=== PATIENT | male | born 2000 | race Hispanic/Latino ===

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

== ENCOUNTER 2021-03-02 09:58 | Emergency (ER) | payer SELFPAY ==
[2021-03-02] MEDS ORDERED: ONDANSETRON 4 MG (ODT) TAB ONE (10:54)
[2021-03-02] MEDS ORDERED: NA CHLORIDE 0.9% 1,000 ML ONE (13:26)
[2021-03-02] MEDS ORDERED: ONDANSETRON 4 MG/2 ML VIAL ONE ×2 (13:26→15:11)
[2021-03-02 13:29] LABS: Absolute Lymphocytes (CBC) 0.9 K/uL (0.7-4.9); Basophils % 0.2 % (0-1.3); Hematocrit 54.4 % (39.6-49.0); Lymphocytes % 5.5 % (15.3-44.8); MPV 8.8 fL (7.6-11.3)
[2021-03-02 14:47] LABS: Blood Morphology Comment NOT SEEN (NOT SEEN); Platelet Estimate ADEQ; White Blood Cell Scan OK (OK)
--- NOTE | 2021-03-02 19:19 | RAD REPORT ---
EXAM DESCRIPTION: CT - Abdomen Pelvis W Contrast - 03/02/2021 5:07 pm CLINICAL HISTORY: Abdominal pain. COMPARISON: None. TECHNIQUE: Computed axial tomography of the abdomen and pelvis was obtained. 100 cc Isovue-300 is ad ministered intravenously. Oral contrast was given. All CT scans are performed using dose optimization technique as appropriate and may include automated exposure control or mA/KV adjustment according to patient size. FINDINGS: Mild fatty liver Spleen, pancreas, adrenals and kidneys appear unremarkable. The appendix is normal caliber. There is no evidence of diverticulitis IMPRESSION: No acute abnormality is displayed
--- NOTE | 2021-03-02 20:45 | EDPHYS ---
Physician Documentation [facility] Name: Marco Antonio Tolliver Age: 20 yrs Sex: Male : 2000 Arrival Date: 03/02/2021 Time: 09:59 Bed Treatment Private MD: RADAMES Physician Junior Newman HPI: 03/02 14:47 This 20 yrs old Male presents to ER via Ambulatory with complaints of jmm Vomiting, Dizziness. 14:47 The patient presents to the emergency department with nausea, vomiting, diarrhea, jmm abdominal pain. Onset: The symptoms/episode began/occurred acutely, today. Possible causes: unknown. The symptoms are aggravated by nothing. The symptoms are alleviated by nothing. Associated signs and symptoms: Pertinent negatives: fever. Historical: - Allergies: 10:33 No Known Allergies; hb - Home Meds: 10:33 None [Active]; hb - PMHx: 10:33 None; hb - PSHx: 10:33 None; hb - Immunization history:: Adult Immunizations up to date. - Social history:: Smoking status: Patient denies any tobacco usage or history of. ROS: 14:47 Constitutional: Negative for fever, chills, and weight loss, Cardiovascular: Negative jmm for chest pain, palpitations, and edema, Respiratory: Negative for shortness of breath, cough, wheezing, and pleuritic chest pain. 14:47 Abdomen/GI: Positive for abdominal pain, vomiting, diarrhea. 14:47 All other systems are negative. Exam: 14:47 Constitutional: This is a well developed, well nourished patient who is awake, alert, jmm and in no acute distress. Head/Face: atraumatic. Eyes: EOMI, no conjunctival erythema appreciated ENT: Moist Mucus Membranes Neck: Trachea midline, Supple Chest/axilla: Normal chest wall appearance and motion. Cardiovascular: Regular rate and rhythm. No edema appreciated Respiratory: Normal respirations, no respiratory distress appreciated 14:47 Skin: General appearance color normal MS/ Extremity: Moves all extremities, no obvious deformities appreciated, no edema noted to the lower extremities Neuro: Awake and alert, normal gait Psych: Behavior is normal, Mood is normal, Patient is cooperative and pleasant 14:47 Abdomen/GI: Inspection: abdomen appears normal, Bowel sounds: normal, Palpation: soft, mild abdominal tenderness, in the right lower quadrant. Vital Signs: 10:32 BP 150 / 88; Pulse 86; Resp 16; Temp 97.8; Pulse Ox 100% on R/A; Pain 5/10; hb 14:00 BP 129 / 75; Pulse 89; Resp 18; Pulse Ox 100% on R/A; tr6 MDM: 13:01 Patient medically screened. [facility] 20:42 Data reviewed: vital signs, nurses notes. Data interpreted: Pulse oximetry: on room air kb is 100 %. Interpretation: normal. Counseling: I had a detailed discussion with the patient and/or guardian regarding: the historical points, exam findings, and any diagnostic results supporting the discharge/admit diagnosis, lab results, radiology results, the need for outpatient follow up, a family practitioner, to return to the emergency department if symptoms worsen or persist or if there are any questions or concerns that arise at home. ED course: Patient tolerating p.o. intake. Patient denies pain at this time. Will discharge home for patient to follow-up outpatient. Patient will return for worsening symptoms or inability to tolerate p.o. intake. Patient in agreement with plan of care. 03/02 13:01 Order name: Basic Metabolic Panel [facility] 03/02 13:01 Order name: CBC with Diff; Complete Time: 14:52 [facility] 03/02 13:01 Order name: Hepatic Function [facility] 03/02 13:01 Order name: Lipase [facility] 03/02 13:03 Order name: COVID-19 : Document "Date of Symptom Onset" if Symptomatic. [facility] 03/02 13:35 Order name: CBC Smear Scan; Complete Time: 14:52 [facility] 03/02 14:42 Order name: CT Abd/Pelvis - IV Contrast Only; Complete Time: 19:24 [facility] 03/02 14:58 Order name: SARS-COV-2 RT PCR; Complete Time: 15:08 [facility] 03/02 13:01 Order name: IV Saline Lock; Complete Time: 13:24 [facility] 03/02 13:01 Order name: Labs collected and sent; Complete Time: 13:24 [facility] Administered Medications: 10:35 CANCELLED (dupp): Zofran (Ondansetron) 4 mg IVP once; over 2 minutes hb 10:36 Drug: Zofran (Ondansetron) 4 mg Route: PO; hb 21:13 Follow up: Response: No adverse reaction bs2 13:24 Drug: NS 0.9% 1000 ml Route: IV; Rate: 1 bolus; Site: right antecubital; tr6 14:34 Follow up: Response: No adverse reaction; IV Status: Completed infusion; IV Intake: tr6 1000ml 13:24 Drug: Zofran (Ondansetron) 4 mg Route: IVP; Site: right antecubital; tr6 14:34 Follow up: Response: No adverse reaction; Nausea is decreased tr6 14:50 Drug: Zofran (Ondansetron) 4 mg Route: IVP; Site: right antecubital; tr6 21:13 Follow up: Response: No adverse reaction bs2 Disposition: 03/03 09:14 Co-signature as Attending Physician, Junior Newman MD I agree with the assessment and nichole plan of care. Disposition Summary: 03/02/21 20:44 Discharge Ordered Location: Home kb Condition: Stable kb Diagnosis - Abdominal pain, unspecified kb - Nausea with vomiting, unspecified kb - Diarrhea, unspecified kb Followup: kb - With: Emergency Department - When: As needed - Reason: Worsening of condition Followup: kb - With: Private Physician - When: 2 - 3 days - Reason: Recheck today's complaints, Continuance of care, Re-evaluation by your physician Discharge Instructions: - Discharge Summary Sheet kb - Food Choices to Help Relieve Diarrhea, Adult kb - Nausea and Vomiting, Adult, [id number] kb Forms: - Medication Reconciliation Form kb - Thank You Letter kb - Antibiotic Education kb - Prescription Opioid Use kb Prescriptions: - Zofran 4 mg Oral Tablet - take 1 tablet by ORAL route every 6 hours As needed; 20 tablet; Refills: 0, kb Product Selection Permitted - dicyclomine 20 mg Oral Tablet - take 1 tablet by ORAL route 4 times per day As needed; 20 tablet; Refills: 0, kb Product Selection Permitted Signatures: Dispatcher [employer] EDMS Daya Patiño, ANITHA MATIAS-Junior Abdalla MD MD cha Mickail, Joel, PA PA jmm Baxter, Heather, RN RN hb Ramnanan, Tiffany, RN RN [id number] Larisa Pradhan RN bs2 Corrections: (The following items were deleted from the chart) 03/02 10:35 10:35 Zofran (Ondansetron) 4 mg IVP once; over 2 minutes ordered. hb hb 13:54 13:04 CORONAVIRUS ordered. EDMS EDMS 18:01 17:54 Abdomen Pelvis W Con+CT.RAD.BRZ ordered. EDMS EDMS
--- NOTE | 2021-03-02 20:45 | ER ---
Nurse's Notes [facility] Name: Marco Antonio Tolliver Age: 20 yrs Sex: Male : 2000 Arrival Date: 03/02/2021 Time: 09:59 Bed Treatment Private MD: Diagnosis: Abdominal pain, unspecified;Nausea with vomiting, unspecified;Diarrhea, unspecified Presentation: 03/02 10:32 Chief complaint: N/V/D and abdominal pain x 3 days. Actively vomiting in triage. hb Coronavirus screen: At this time, the client does not indicate any symptoms associated with coronavirus-19. Ebola Screen: No symptoms or risks identified at this time. Initial Sepsis Screen: Does the patient meet any 2 criteria? No. Patient's initial sepsis screen is negative. Does the patient have a suspected source of infection? No. Patient's initial sepsis screen is negative. Risk Assessment: Do you want to hurt yourself or someone else? Patient reports no desire to harm self or others. Onset of symptoms was February 27, 2021. 10:32 Method Of Arrival: Ambulatory 10:32 Acuity: HAO 3 hb Triage Assessment: 18:38 GI: Reports upper abdominal pain. tr6 Historical: - Allergies: 10:33 No Known Allergies; hb - Home Meds: 10:33 None [Active]; hb - PMHx: 10:33 None; hb - PSHx: 10:33 None; hb - Immunization history:: Adult Immunizations up to date. - Social history:: Smoking status: Patient denies any tobacco usage or history of. Screenin:39 Abuse screen: Denies threats or abuse. Denies injuries from another. Nutritional tr6 screening: No deficits noted. Tuberculosis screening: No symptoms or risk factors identified. Fall Risk None identified. Assessment: 12:43 General: Appears in no apparent distress. comfortable, well groomed, Behavior is calm, tr6 cooperative, appropriate for age. Pain: Complains of pain in epigastric, LLQ, CP. Neuro: No deficits noted. Cardiovascular: Reports chest pain. Respiratory: No deficits noted. GI: Abdomen is flat, non-distended, Bowel sounds present X 4 quads. Abd is soft and non tender. : No deficits noted. EENT: No deficits noted. Derm: No deficits noted. Musculoskeletal: No deficits noted. 14:49 Reassessment: Patient and/or family updated on plan of care and expected duration. Pain tr6 level reassessed. Patient is alert, oriented x 3, equal unlabored respirations, skin warm/dry/pink. Patient states symptoms have not improved. 16:55 Reassessment: pt transported to CT via wheelchair. tr6 17:48 Reassessment: Patient and/or family updated on plan of care and expected duration. Pain tr6 level reassessed. 18:38 Reassessment: Patient and/or family updated on plan of care and expected duration. Pain tr6 level reassessed. pending repeat CT scan. Vital Signs: 10:32 BP 150 / 88; Pulse 86; Resp 16; Temp 97.8; Pulse Ox 100% on R/A; Pain 5/10; hb 14:00 BP 129 / 75; Pulse 89; Resp 18; Pulse Ox 100% on R/A; tr6 ED Course: 09:59 Patient arrived in ED. rg4 10:33 Triage completed. hb 10:33 Arm band placed on. hb 10:51 Jaylen Gracia PA is PHCP. [facility] 10:51 Junior Newman MD is Attending Physician. jmm 12:39 Beatriz Mendoza, KLEBER is Primary Nurse. tr6 12:41 Patient has correct armband on for positive identification. Placed in gown. Bed in low mh5 position. Call light in reach. Side rails up X 1. Adult w/ patient. commercial airline pilot on. Pulse ox on. NIBP on. 12:44 No provider procedures requiring assistance completed. tr6 13:24 Inserted saline lock: 20 gauge in right antecubital area, using aseptic technique. tr6 Blood collected. 17:06 CT Abd/Pelvis - IV Contrast Only In Process Unspecified. EDMS 17:48 Awaiting radiology results. tr6 17:57 PHCP role handed off by Jaylen Gracia PA kb 17:57 Daya Patiño FNP-C is PHCP. kb 21:12 IV discontinued, intact, bleeding controlled, No redness/swelling at site. bs2 Administered Medications: 10:35 CANCELLED (dupp): Zofran (Ondansetron) 4 mg IVP once; over 2 minutes hb 10:36 Drug: Zofran (Ondansetron) 4 mg Route: PO; hb 21:13 Follow up: Response: No adverse reaction bs2 13:24 Drug: NS 0.9% 1000 ml Route: IV; Rate: 1 bolus; Site: right antecubital; tr6 14:34 Follow up: Response: No adverse reaction; IV Status: Completed infusion; IV Intake: tr6 1000ml 13:24 Drug: Zofran (Ondansetron) 4 mg Route: IVP; Site: right antecubital; tr6 14:34 Follow up: Response: No adverse reaction; Nausea is decreased tr6 14:50 Drug: Zofran (Ondansetron) 4 mg Route: IVP; Site: right antecubital; tr6 21:13 Follow up: Response: No adverse reaction bs2 Intake: 14:34 IV: 1000ml; Total: 1000ml. tr6 Outcome: 20:44 Discharge ordered by . kb 21:12 Discharged to home ambulatory, with family. bs2 21:12 Condition: improved 21:12 Discharge instructions given to patient, family, Instructed on discharge instructions, follow up and referral plans. medication usage, Demonstrated understanding of instructions, follow-up care, medications, Prescriptions given X 2. 21:13 Patient left the ED. bs2 Signatures: Dispatcher [employer] EDMS Daya Patiño, POLLY-C MID LEVEL CLINICIAN-Jaylen Nur PA PA jmm Baxter, Heather, RN Carmella Guajardo Kristan Pittman [facility] Beatriz Mendoza RN RN tr6 Larisa Pradhan RN RN bs2
[2021-03-02 21:45] VITALS: TEMP 97.8; O2SAT 100
[2021-03-02 21:47] VITALS: BP 129/75
[2021-03-03 11:35] LABS: Potassium 4.5
[2021-03-03 11:38] LABS: Bilirubin Total 1.3; Protein, Total 9.3
[2021-03-03 11:39] LABS: Albumin 5.5
== END 2021-03-02 21:13 | disposition home or self-care (01) ==
LOC: ER 09:58
DX: R10.31 Right lower quadrant pain (principal); R19.7 Diarrhea, unspecified; Z20.822 Contact with and (suspected) exposure to COVID-19
CPT/HCPCS: 36415; 74177; 80048; 80076; 83690; 85025; 96361; 96374; 99284; J2405; J7030; Q9967; U0003

== ENCOUNTER 2021-07-31 19:57 | Emergency (ER) | payer SELFPAY ==
--- OUTSIDE RECORDS SUMMARY | 2021-07-31 20:00 | XMS REPORT | Continuity of Care Document ---
:2000 Author Organization [facility] t Address [address] [place] [id number] Care Team Providers Name Role Phone Unavailable Unavailable Unavailable Problems This patient has no known problems. Allergies, Adverse Reactions, Alerts This patient has no known allergies or adverse reactions. Medications This patient has no known medications. Procedures This patient has no known procedures. Results This patient has no known results.
--- NOTE | 2021-07-31 20:30 | ER ---
Nurse's Notes [facility] Name: Marco Antonio Tolliver Age: 20 yrs Sex: Male : 2000 Arrival Date: 07/31/2021 Time: 20:01 Bed 6 Private MD: Diagnosis: Sprain of other part of wrist and hand Presentation: 07/31 20:16 Chief complaint: Patient states: he was picking up skillet trays at work and felt his r as6 wrist pop, has had pain in that wrist even since. Coronavirus screen: At this time, the client does not indicate any symptoms associated with coronavirus-19. Ebola Screen: No symptoms or risks identified at this time. Initial Sepsis Screen: Does the patient meet any 2 criteria? No. Patient's initial sepsis screen is negative. Does the patient have a suspected source of infection? No. Patient's initial sepsis screen is negative. Risk Assessment: Do you want to hurt yourself or someone else? Patient reports no desire to harm self or others. Onset of symptoms was July 31, 2021. 20:16 Method Of Arrival: Ambulatory as6 20:16 Acuity: HAO 4 as6 Historical: - Allergies: 20:22 No Known Allergies; as6 - Home Meds: 20:22 None [Active]; as6 - PMHx: 20:22 None; as6 - PSHx: 20:22 None; as6 - Immunization history:: Adult Immunizations up to date, Client reports receiving the 1st dose of the Covid vaccine. - Social history:: Smoking status: Patient denies any tobacco usage or history of. Screenin:26 Abuse screen: Denies threats or abuse. Nutritional screening: No deficits noted. as6 Tuberculosis screening: No symptoms or risk factors identified. Fall Risk None identified. Assessment: 20:23 General: Appears in no apparent distress. Behavior is calm, cooperative. Pain: as6 Complains of pain in dorsal aspect of right wrist Quality of pain is described as shooting. Neuro: Level of Consciousness is awake, alert, obeys commands, Oriented to person, place, time, situation. Cardiovascular: Capillary refill < 3 seconds Patient's skin is warm and dry. Respiratory: Airway is patent Trachea midline Respiratory effort is even, unlabored, Respiratory pattern is regular, symmetrical. Derm: Skin is intact, is healthy with good turgor. Vital Signs: 20:16 BP 131 / 94; Pulse 80; Resp 18 S; Temp 98.0(O); Pulse Ox 100% on R/A; Weight 94.8 kg as6 (R); Height 5 ft. 7 in. (170.18 cm) (R); Pain 7/10; 20:16 Body Mass Index 32.73 (94.80 kg, 170.18 cm) as6 ED Course: 20:01 Patient arrived in ED. bp1 20:07 Vineet Medley PA is PHCP. jr8 20:07 Vinod John MD is Attending Physician. jr8 20:14 Henok Burch, KLEBER is Primary Nurse. as6 20:22 Triage completed. as6 20:23 Arm band placed on. as6 20:27 Bed in low position. Call light in reach. Side rails up X 1. Adult w/ patient. Pulse ox as6 on. NIBP on. 20:28 Fran Noel MD is Referral Physician. jr8 20:41 No provider procedures requiring assistance completed. Patient did not have IV access as6 during this emergency room visit. Administered Medications: No medications were administered Outcome: 20:29 Discharge ordered by . jr8 20:41 Discharged to home ambulatory, with family. as6 20:41 Condition: stable 20:41 Discharge instructions given to patient, Instructed on discharge instructions, follow up and referral plans. medication usage, Demonstrated understanding of instructions, follow-up care, medications, Prescriptions given X 1. 20:42 Patient left the ED. as6 Signatures: Vineet Medley PA PA jr8 Anushka Craig bp1 Henok Burch, KLEBER RN as6
--- NOTE | 2021-07-31 20:30 | EDPHYS ---
Physician Documentation [facility] Name: Marco Antonio Tolliver Age: 20 yrs Sex: Male : 2000 Arrival Date: 07/31/2021 Time: 20:01 Bed 6 Private MD: ED Physician Vinod John HPI: 07/31 20:31 This 20 yrs old Male presents to ER via Ambulatory with complaints of Wrist jr8 Injury. 20:31 The patient or guardian reports pain. The complaints affect the right wrist diffusely. jr8 Onset: The symptoms/episode began/occurred acutely, 2 day(s) ago. Modifying factors: The symptoms are alleviated by nothing, the symptoms are aggravated by movement. Associated signs and symptoms: The patient has no apparent associated signs or symptoms. The patient has not experienced similar symptoms in the past. The patient has not recently seen a physician. . Is a 20-year-old male that presented to the emergency room with complaints of right wrist pain. Patient stated that he felt a pop to the dorsal aspect of his wrist when lifting something heavy at work the other day. Had lifted again the following day and felt another pop. This time felt warm throughout his wrist and has not been able to move it as well.. Historical: - Allergies: 20:22 No Known Allergies; as6 - Home Meds: 20:22 None [Active]; as6 - PMHx: 20:22 None; as6 - PSHx: 20:22 None; as6 - Immunization history:: Adult Immunizations up to date, Client reports receiving the 1st dose of the Covid vaccine. - Social history:: Smoking status: Patient denies any tobacco usage or history of. ROS: 20:31 Eyes: Negative for injury, pain, redness, and discharge, ENT: Negative for injury, jr8 pain, and discharge, Neck: Negative for injury, pain, and swelling, Cardiovascular: Negative for chest pain, palpitations, and edema, Respiratory: Negative for shortness of breath, cough, wheezing, and pleuritic chest pain, Abdomen/GI: Negative for abdominal pain, nausea, vomiting, diarrhea, and constipation, Back: Negative for injury and pain, Skin: Negative for injury, rash, and discoloration, Neuro: Negative for headache, weakness, numbness, tingling, and seizure. 20:31 MS/extremity: Positive for pain, tenderness, of the Right wrist. Exam: 20:31 Constitutional: This is a well developed, well nourished patient who is awake, alert, jr8 and in no acute distress. Cardiovascular: Regular rate and rhythm with a normal S1 and S2. No gallops, murmurs, or rubs. Normal PMI, no JVD. No pulse deficits. Respiratory: Lungs have equal breath sounds bilaterally, clear to auscultation and percussion. No rales, rhonchi or wheezes noted. No increased work of breathing, no retractions or nasal flaring. Skin: Warm, dry with normal turgor. Normal color with no rashes, no lesions, and no evidence of cellulitis. Neuro: Awake and alert, GCS 15, oriented to person, place, time, and situation. Cranial nerves II-XII grossly intact. Motor strength 5/5 in all extremities. Sensory grossly intact. 20:31 Musculoskeletal/extremity: Extremities: grossly normal except: noted in the Right wrist: Mild pain to palpation of the dorsal and lateral right wrist without any external signs of swelling or trauma. Full range of motion noted but with mild pain. Sensation intact with 2+ radial pulses present. Vital Signs: 20:16 BP 131 / 94; Pulse 80; Resp 18 S; Temp 98.0(O); Pulse Ox 100% on R/A; Weight 94.8 kg as6 (R); Height 5 ft. 7 in. (170.18 cm) (R); Pain 7/10; 20:16 Body Mass Index 32.73 (94.80 kg, 170.18 cm) as6 Procedures: 20:27 Splinting: Splint applied to right wrist using wrist splint, applied by myself. jr8 Examined by me, post splint application: neurovascular intact, 2+ distal pulses palpable, brisk capillary refill noted, Patient tolerated well. MDM: 20:07 Patient medically screened. jr8 20:27 Data reviewed: vital signs, nurses notes, radiologic studies, plain films. Data jr8 interpreted: Pulse oximetry: on room air is 100 %. Interpretation: normal. Counseling: I had a detailed discussion with the patient and/or guardian regarding: the historical points, exam findings, and any diagnostic results supporting the discharge/admit diagnosis, the need for outpatient follow up, a hand specialist, to return to the emergency department if symptoms worsen or persist or if there are any questions or concerns that arise at home. 20:36 ED course: Discussed with patient that he needs to wear the wrist splint and take jr8 anti-inflammatory for the next week. If it continues to hurt after that he will follow-up with hand for further evaluation.. 07/31 20:27 Order name: Wrist Splint; Complete Time: 20:29 jr8 Administered Medications: No medications were administered Disposition: 23:59 Co-signature as Attending Physician, Vinod John MD I agree with the assessment and kdr plan of care. Disposition Summary: 07/31/21 20:29 Discharge Ordered Location: Home jr8 Problem: new jr8 Symptoms: have improved jr8 Condition: Stable jr8 Diagnosis - Sprain of other part of wrist and hand jr8 Followup: jr8 - With: Fran Noel MD - When: 7 - 10 days - Reason: Recheck today's complaints, Continuance of care, Re-evaluation by your physician Discharge Instructions: - Discharge Summary Sheet jr8 - Wrist Sprain, Adult jr8 Forms: - Medication Reconciliation Form jr8 - Thank You Letter jr8 - Work release form jr8 - Antibiotic Education jr8 - Prescription Opioid Use jr8 Prescriptions: - meloxicam 15 mg Oral tablet - take 1 tablet by ORAL route once daily; 16 tablet; Refills: 0, Product jr8 Selection Permitted Signatures: Vinod John MD MD [facility] Vineet Medley PA PA jr8 Henok Burch, RN RN as6
[2021-07-31 20:57] VITALS: BP 131/94; TEMP 98; O2SAT 100
== END 2021-07-31 20:42 | disposition home or self-care (01) ==
LOC: ER 19:57
DX: S63.8X1A Sprain of other part of right wrist and hand, initial encounter (principal); X50.0XXA Overexertion from strenuous movement or load, initial encounter
CPT/HCPCS: 99283

== ENCOUNTER 2021-11-21 11:33 | Emergency (ER) | payer SELFPAY ==
--- OUTSIDE RECORDS SUMMARY | 2021-11-21 11:36 | XMS REPORT | Continuity of Care Document ---
:2000 Author Organization [facility] t Address [address] [place] [address] Care Team Providers Name Role Phone Unavailable Unavailable Unavailable Problems This patient has no known problems. Allergies, Adverse Reactions, Alerts This patient has no known allergies or adverse reactions. Medications This patient has no known medications. Procedures This patient has no known procedures. Results Test Description Test Time Test Comments Results Result Comments Source SARS-CoV-2 (COVID-19), RT-PCR/TMA 2021-09-07 06:58:49 Test Item Value Reference Range Interpretation Comme nts SARS-CoV-2 INTERPRETATION NEGATIVE SEE NOTE S ARS-CoV-2 RNA NOT (test code = 96896) DETECTED Negative results do not preclude SARS-C oV-2 infection and should notb e used as the sole basis for patient management deci sions. Negativeresults must be combined with clinical o bservations, patient history ,and epidemiological information. Optimum specime n types and timingfor peak viral levels during infectio ns caused by SARS-CoV-2 have notbeen determined. Col lection of multiple specim ens or types ofspecimens may be necessary to detect virus. I mproper specimencollect ion and handling, sequence variab ility under primers/probes, or organism present below t he limit of detection may l ead to falsenegative r esults. Positive and negative pr edictive values oftesting are h ighly dependent on prevalence. False negative testresults are more likely when prevalence is h igh. SOURCE (test code = 70585) NOT SPECIFIED Note: Methodology is Zaid Tenisha Real-Time RT-PCR. The expected r esult or reference range is NEGATIVE (Not Detected). For more information regarding COVID -19 testing to include clinica linformation, methodology det ail, intended use, FDA author ization andrecommended fact sheets for patients or hea lthcare providers, see NewTest Announcement: S ARS-CoV-2 (COVID-19) by Harpreet GEORGE at URL below (note,fact shee ts are provided by method given in report:https:// [email or web address] [email or web address]/ Alternatively, see downloadable PDF fact sheet at:https://www. [employer]/COVID -19-RT-PCR UNLESS OTHERWISE INDIC ATED, ALL TESTING PERFORMED [facility], [place] [address] LABORATORY DIRE CTOR: RICA ADAMS M.D. CLIA NUMBER [id number] [facility] [place] [id number]
[2021-11-21] MEDS ORDERED: NA CHLORIDE 0.9% 1,000 ML ONE (12:55)
[2021-11-21] MEDS ORDERED: FAMOTIDINE 20 MG/2 ML VIAL IV ONE (12:55)
[2021-11-21] MEDS ORDERED: ONDANSETRON 4 MG/2 ML VIAL ONE (12:55)
[2021-11-21 13:08] LABS: Absolute Lymphocytes (CBC) 2.2 K/uL (0.7-4.9); Hematocrit 44.9 % (39.6-49.0); Lymphocytes % 28.1 % (15.3-44.8); MPV 9.1 fL (7.6-11.3); RBC Red Blood Cell Count 5.12 M/uL (4.33-5.43)
[2021-11-21 13:29] LABS: Urine Blood Negative (Negative); Urine Glucose Negative (Negative); Urine Protein Negative (Negative); Urine Specific Gravity 1.025 (1.005-1.030); Urine pH 6.5 (5.0-7.0)
[2021-11-21 13:32] LABS: ALT/SGPT 44 U/L (12-78); AST/SGOT 19 U/L (15-37); Albumin 4.2 g/dL (3.4-5.0); Alkaline Phosphatase 74 U/L (45-117); BUN Blood Urea Nitrogen 15 mg/dL (7-18); Bicarbonate 27 mmol/L (21-32); Bilirubin Total 0.6 mg/dL (0.2-1.0); Glucose Level 90 mg/dL (74-106); Lipase 90 U/L (73-393); Potassium 3.9 mmol/L (3.5-5.1); Protein, Total 7.2 g/dL (6.4-8.2); Sodium Level 138 mmol/L (136-145)
--- NOTE | 2021-11-21 14:25 | RAD REPORT ---
EXAM DESCRIPTION: CT - Abdomen Pelvis W Contrast - 11/21/2021 1:52 pm CLINICAL HISTORY: PAIN, left-sided with nausea and vomiting COMPARISON: Abdomen Pelvis W Contrast dated 03/02/2021 TECHNIQUE: Biphasic, helical CT imaging of the abdomen and pelvis was performed following 100 ml non -ionic IV contrast. No oral contrast administered. All CT scans are performed using dose optimization technique as appropriate and may include automated exposure control or mA/KV adjustment according to patient size. FINDINGS: No suspicious findings in the lung bases. The liver, spleen, and pancreas show no focal findings. Liver shows a borderline to mild fatty infilt ration pattern. No portal vein abnormality. No biliary tree dilatation. Gallstones can be occult on C T imaging. There is some subtle gallbladder wall thickening. This is probably not clinically signific ant. Provided history indicates left-sided abdominal pain. Renal function is symmetric and without delay. No hydronephrosis present. No obstructing or nonobstru cting calculi. No pyelonephritis or acute parenchymal process. No bladder abnormalities. No adrenal a bnormalities. No dilated bowel loops or bowel wall thickening. Appendix is normal. No free air, free fluid or infla mmatory stranding. No hernia, mass or bulky lymphadenopathy. No suspicious bony findings. IMPRESSION: Contrast enhanced CT abdomen and pelvis showing no acute or emergent finding. Subtle gallbladder wall thickening is seen. Gallstones can be occult. This is probably not a signific ant finding. The provided history was left-sided abdominal pain. Follow-up gallbladder sonography cou ld be performed if the patient has right-side or right upper quadrant symptoms.
--- NOTE | 2021-11-21 14:39 | ER ---
Nurse's Notes [facility] Name: Macro Antonio Tolliver Age: 21 yrs Sex: Male : 2000 Arrival Date: 11/21/2021 Time: 11:36 Bed 26 Private MD: Diagnosis: Other abdominal pain;Vomiting Presentation: 11/21 11:48 Chief complaint: Patient states: for approx three days, he wakes up in the morning with ap3 abdominal pain and nausea with vomiting. Patient states his symptoms have not improved, and he hasn't been able to get much sleep. Coronavirus screen: At this time, the client does not indicate any symptoms associated with coronavirus-19. Ebola Screen: No symptoms or risks identified at this time. Initial Sepsis Screen: Does the patient meet any 2 criteria? No. Patient's initial sepsis screen is negative. Does the patient have a suspected source of infection? No. Patient's initial sepsis screen is negative. Risk Assessment: Do you want to hurt yourself or someone else? Patient reports no desire to harm self or others. Onset of symptoms was November 18, 2021. 11:48 Method Of Arrival: Ambulatory ap3 11:48 Acuity: HAO 3 ap3 Triage Assessment: 11:49 General: Appears in no apparent distress. Behavior is calm, cooperative. Pain: ap3 Complains of pain in abdomen Pain currently is 7 out of 10 on a pain scale. Quality of pain is described as sharp, Pain began gradually, 2-3 days ago. Neuro: Level of Consciousness is awake, alert, obeys commands, Oriented to person, place, time, situation, Gait is steady, Speech is normal, Cardiovascular: Patient's skin is warm and dry. Respiratory: Airway is patent Respiratory effort is even, unlabored, Respiratory pattern is regular, symmetrical. GI: Reports nausea, vomiting, Patient currently denies diarrhea. Historical: - Allergies: 11:49 No Known Allergies; ap3 - Home Meds: 11:49 None [Active]; ap3 - PMHx: 11:49 None; ap3 - Immunization history:: Client reports receiving the 1st dose of the Covid vaccine, Flu vaccine is not up to date. - Social history:: Smoking status: Reported history of juuling and/or vaping. Screenin:51 Abuse screen: Denies threats or abuse. Nutritional screening: Has had N/V for 3 or more ap3 days. Tuberculosis screening: No symptoms or risk factors identified. Fall Risk None identified. Assessment: 13:14 General: Appears in no apparent distress. uncomfortable, Behavior is calm, cooperative, ab2 appropriate for age. Pain: Complains of pain in left upper quadrant and left lower quadrant Pain currently is 5 out of 10 on a pain scale. 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 Gait is steady, Speech is normal, Facial symmetry appears normal. Cardiovascular: No deficits noted. Denies chest pain, shortness of breath, Patient's skin is warm and dry. Respiratory: Airway is patent Respiratory effort is even, unlabored, Respiratory pattern is regular, symmetrical, Breath sounds are clear bilaterally. GI: Abdomen is round non-distended, Bowel sounds present X 4 quads. Reports lower abdominal pain, upper abdominal pain, nausea, vomiting. : No deficits noted. No signs and/or symptoms were reported regarding the genitourinary system. EENT: No deficits noted. No signs and/or symptoms were reported regarding the EENT system. Derm: Skin is intact, is healthy with good turgor, Skin is pink, warm \T\ dry. Musculoskeletal: No deficits noted. No signs and/or symptoms reported regarding the musculoskeletal system. 13:36 Reassessment: Patient appears in no apparent distress at this time. Pt resting in bed, ab2 fluids infusing patient tolerating well. Mom remains at bedside. Pt denies any needs. Awaiting CT scan. Vital Signs: 11:48 BP 132 / 77; Pulse 60; Resp 17; Temp 98.1; Pulse Ox 100% ; Weight 81.65 kg; Height 5 ap3 ft. 6 in. (167.64 cm); Pain 7/10; 13:16 BP 124 / 79; Pulse 81; Resp 16; Pulse Ox 99% on R/A; ab2 13:36 BP 121 / 65; Pulse 98; Resp 17; Pulse Ox 100% on R/A; ab2 14:53 BP 139 / 79; Pulse 94; Resp 16; Pulse Ox 99% on R/A; ab2 11:48 Body Mass Index 29.05 (81.65 kg, 167.64 cm) ap3 ED Course: 11:36 Patient arrived in ED. ds1 11:39 Jaylen Gracia PA is PHCP. jmm 11:39 Junior Newman MD is Attending Physician. jmm 11:49 Triage completed. ap3 11:51 Arm band placed on right wrist. ap3 12:49 Prabhakar Macias is Primary Nurse. ab2 13:00 Inserted saline lock: 20 gauge in right antecubital area, using aseptic technique. ab2 Blood collected. 13:16 Patient has correct armband on for positive identification. Bed in low position. Call ab2 light in reach. Side rails up X2. 13:16 No provider procedures requiring assistance completed. ab2 13:54 Abdomen In Process Unspecified. EDMS 14:37 Wade Lo MD is Referral Physician. [facility] 14:53 IV discontinued, intact, bleeding controlled, No redness/swelling at site. Pressure ab2 dressing applied. Administered Medications: 13:08 Drug: NS 0.9% 1000 ml Route: IV; Rate: 1 bolus; Site: right antecubital; ab2 13:08 Drug: Pepcid (famotidine) 20 mg Route: IVP; Site: right antecubital; ab2 13:13 Drug: Zofran (Ondansetron) 4 mg Route: IVP; Site: right antecubital; ab2 Outcome: 14:38 Discharge ordered by . [facility] 14:52 Discharged to home ambulatory, with family. ab2 14:52 Condition: good 14:52 Discharge instructions given to patient, family, Instructed on discharge instructions, follow up and referral plans. medication usage, Demonstrated understanding of instructions, follow-up care, medications, Prescriptions given X 3. 14:55 Patient left the ED. ab2 Signatures: Dispatcher [employer] EDMS Jaylen Gracia PA PA Cheli Lew ds1 Baylee Marion RN RN ap3 Prabhakar Macias ab2
--- NOTE | 2021-11-21 14:39 | EDPHYS ---
Physician Documentation [facility] Name: Marco Antonio Tolliver Age: 21 yrs Sex: Male : 2000 Arrival Date: 11/21/2021 Time: 11:36 Bed 26 Private MD: RADAMES Physician Junior Newman HPI: 11/21 12:23 This 21 yrs old Male presents to ER via Ambulatory with complaints of Nausea, jmm Abdominal Pain. 12:23 The patient presents to the emergency department with nausea, vomiting, abdominal pain. jmm Onset: The symptoms/episode began/occurred acutely. Possible causes: unknown. The symptoms are aggravated by nothing. The symptoms are alleviated by nothing. Associated signs and symptoms: Pertinent positives: abdominal pain, Pertinent negatives: fever. Is a 21-year-old male with no chronic medical conditions presents emerged department with complaints of left-sided abdominal pain beginning approximately 3 days ago. Patient denies diarrhea. Denies fever.. Historical: - Allergies: 11:49 No Known Allergies; ap3 - Home Meds: 11:49 None [Active]; ap3 - PMHx: 11:49 None; ap3 - Immunization history:: Client reports receiving the 1st dose of the Covid vaccine, Flu vaccine is not up to date. - Social history:: Smoking status: Reported history of juuling and/or vaping. ROS: 12:23 Constitutional: Negative for fever, chills, and weight loss, Cardiovascular: Negative jmm for chest pain, palpitations, and edema, Respiratory: Negative for shortness of breath, cough, wheezing, and pleuritic chest pain. 12:23 Abdomen/GI: Positive for abdominal pain, nausea and vomiting. 12:23 All other systems are negative. Exam: 12:23 Constitutional: This is a well developed, well nourished patient who is awake, alert, jmm and in no acute distress. Head/Face: atraumatic. Eyes: EOMI, no conjunctival erythema appreciated ENT: Moist Mucus Membranes Neck: Trachea midline, Supple Chest/axilla: Normal chest wall appearance and motion. Cardiovascular: Regular rate and rhythm. No edema appreciated Respiratory: Normal respirations, no respiratory distress appreciated 12:23 Back: Normal ROM Skin: General appearance color normal MS/ Extremity: Moves all extremities, no obvious deformities appreciated, no edema noted to the lower extremities Neuro: Awake and alert Psych: Behavior is normal, Mood is normal, Patient is cooperative and pleasant 12:23 Abdomen/GI: Inspection: abdomen appears normal, Bowel sounds: normal, Palpation: soft, moderate abdominal tenderness, in the left upper quadrant and left lower quadrant. Vital Signs: 11:48 BP 132 / 77; Pulse 60; Resp 17; Temp 98.1; Pulse Ox 100% ; Weight 81.65 kg; Height 5 ap3 ft. 6 in. (167.64 cm); Pain 7/10; 13:16 BP 124 / 79; Pulse 81; Resp 16; Pulse Ox 99% on R/A; ab2 13:36 BP 121 / 65; Pulse 98; Resp 17; Pulse Ox 100% on R/A; ab2 14:53 BP 139 / 79; Pulse 94; Resp 16; Pulse Ox 99% on R/A; ab2 11:48 Body Mass Index 29.05 (81.65 kg, 167.64 cm) ap3 MDM: 12:23 Patient medically screened. nichole 14:36 Data reviewed: vital signs, nurses notes. Counseling: I had a detailed discussion with wilman the patient and/or guardian regarding: the historical points, exam findings, and any diagnostic results supporting the discharge/admit diagnosis, radiology results, the need for further work-up and treatment in the hospital, to return to the emergency department if symptoms worsen or persist or if there are any questions or concerns that arise at home. ED course: Patient is alert and non toxic in appearance in the ED. Decreased abdominal pain. Patient advised to follow up with GI and otherwise given strict return precautions. Patient understood and agrees with the plan of care. . 11/21 12:43 Order name: CBC with Diff; Complete Time: 13:49 [facility] 11/21 12:43 Order name: CMP; Complete Time: 13:49 [facility] 11/21 12:43 Order name: Lipase; Complete Time: 13:49 [facility] 11/21 13:29 Order name: Urine Dipstick-Ancillary; Complete Time: 13:49 [facility] 11/21 12:43 Order name: IV Saline Lock; Complete Time: 13:13 [facility] 11/21 12:43 Order name: Labs collected and sent; Complete Time: 13:13 [facility] 11/21 12:43 Order name: Urine Dipstick-Ancillary (obtain specimen); Complete Time: 13:31 [facility] 11/21 13:45 Order name: Abdomen ; Complete Time: 14:26 EDMS Administered Medications: 13:08 Drug: NS 0.9% 1000 ml Route: IV; Rate: 1 bolus; Site: right antecubital; ab2 13:08 Drug: Pepcid (famotidine) 20 mg Route: IVP; Site: right antecubital; ab2 13:13 Drug: Zofran (Ondansetron) 4 mg Route: IVP; Site: right antecubital; ab2 Disposition Summary: 11/21/21 14:38 Discharge Ordered Location: Home [facility] Condition: Stable jm Diagnosis - Other abdominal pain jm - Vomiting [facility] Followup: [facility] - With: Wade Lo MD - When: 2 - 3 days - Reason: Recheck today's complaints, Continuance of care, Re-evaluation by your physician Discharge Instructions: - Discharge Summary Sheet [facility] - Abdominal Pain, Adult jm - Vomiting, Adult [facility] Forms: - Medication Reconciliation Form [facility] - Thank You Letter [facility] - Antibiotic Education [facility] - Prescription Opioid Use [facility] - Work release form [facility] Prescriptions: - ondansetron 4 mg Oral tablet,disintegrating - take 1 tablet by ORAL route every 4-6 hours; 30 tablet; Refills: 0, Product [facility] Selection Permitted - Pepcid 20 mg Oral Tablet - take 1 tablet by ORAL route every 12 hours for 10 days; 20 tablet; Refills: 0, [facility] Product Selection Permitted - dicyclomine 20 mg Oral Tablet - take 1 tablet by ORAL route 3 times per day; 30 tablet; Refills: 0, Product [facility] Selection Permitted Addendum: 11/23/2021 18:41 Co-signature as Attending Physician, Junior Newman MD I agree with the assessment and c silva plan of care. Signatures: Dispatcher [employer] Junior Jean MD MD cha Mickail, Joel, PA PA jmm Prokisch, Amanda, RN RN ap3 Prabhakar Macias ab2
[2021-11-21 23:49] VITALS: TEMP 98.1
[2021-11-21 23:53] VITALS: BP 139/79; O2SAT 99
== END 2021-11-21 14:55 | disposition home or self-care (01) ==
LOC: ER 11:33
DX: R10.9 Unspecified abdominal pain (principal); R11.2 Nausea with vomiting, unspecified
CPT/HCPCS: 36415; 74177; 80053; 81003; 83690; 85025; 96374; 96375; 99284; J2405; J7030; Q9967

== ENCOUNTER 2021-12-14 21:09 | Emergency (ER) | payer SELFPAY ==
--- OUTSIDE RECORDS SUMMARY | 2021-12-14 21:12 | XMS REPORT | Continuity of Care Document ---
:2000 Author Organization [facility] t Address [address] [place] [address] Care Team Providers Name Role Phone PCP, DOES NOT HAVE A Primary Care Physician Unavailable ARAMIS Attending Clinician Unavailable Aramis LOPEZP Attending Clinician Problems Condition Condition Condition Status Onset Resolution Last Treating Co mments Source Name Details Category Date Date Treatment Clinician Date No known No known Disease Unive rs active active ity of problems problems [facility] Allergies, Adverse Reactions, Alerts Allergy Allergy Status Severity Reaction(s) Onset Inactive Treating Comm ents Source Name Type Date Date Clinician NO KNOWN Drug Active Univers ALLERGIE Class ity of S [facility] Social History Social Habit Start Date Stop Date Quantity Comments Source Exposure to 2021-11-20 2021-11-30 Not sure [facility] SARS-CoV-2 (event) 00:00:00 [facility] Assigned At [birth year] [facility] 00:00:00 00:00:00 [facility] Smoking Status Start Date Stop Date Source Unknown if ever smoked [facility] Medications Ordered Filled Start Stop Current Ordering Indication Dosage Frequency Signature Comments Components Source Medication Medication Date Date Medication? Clinician (SIG) Name Name No known No [facility] medications -21 ity of 15:12: [address] Vital Signs Vital Name Observation Time Observation Value Comments Source Systolic blood 2021-11-30 18:18:00 138 mm[Hg] Univer sity of pressure [facility] Diastolic blood 2021-11-30 18:18:00 89 mm[Hg] Unive rsity of pressure [facility] Heart rate 2021-11-30 18:18:00 53 /min [facility] Body temperature 2021-11-30 18:18:00 36.78 Erin [facility] Respiratory rate 2021-11-30 18:18:00 14 /min [facility] Body height 2021-11-30 18:18:00 170.2 cm [facility] Body weight 2021-11-30 18:18:00 86.183 kg [facility] BMI 2021-11-30 18:18:00 29.76 kg/m2 [facility] Oxygen saturation in 2021-11-30 18:18:00 99 /min [facility] Arterial blood by [facility] Pulse oximetry Branch Procedures Procedure Date / Time Performed Performing Clinician Sour e NOTICE OF PRIVACY 2021-11-30 18:10:21 Doctor Unassigned, No [facility] PRACTICES Name [facility] CONSENT/REFUSAL FOR 2021-11-30 18:09:03 Doctor Unassigned, No [facility] DIAGNOSIS AND Name Medical Branch TREATMENT Encounters Start End Encounter Admission Attending Care Care Encounter Source Date/Time Date/Time Type Type Clinicians Facility Department ID 2021-11-30 2021-11-30 Emergency X SELF, [facility] ERT [id number] [facility] 13:18:00 15:19:00 SYDNEE carlosnavya [facility] 2021-11-30 2021-11-30 Emergency Self, [facility] [id number] Univers 13:18:00 15:19:00 Sydnee BESS [id number] i [facility] [id number] [facility] [id number] [facility] 084 Branch Results Test Description Test Time Test Comments Results Result Comments Source SARS-CoV-2 (COVID-19), RT-PCR/TMA 2021-09-07 06:58:49 Test Item Value Reference Range Interpretation Comme nts SARS-CoV-2 INTERPRETATION NEGATIVE SEE NOTE S ARS-CoV-2 RNA NOT (test code = 86951) DETECTED Negative results do not preclude SARS-C [...] is h igh. SOURCE (test code = 58738) NOT SPECIFIED Note: Methodology is Zaid Tenisha Real-Time RT-PCR. The expected r esult or reference range is NEGATIVE (Not Detected). For more information regarding COVID -19 testing to include clinica linformation, methodology det ail, intended use, FDA author ization andrecommended fact sheets for patients or a lthcare providers, see [employer] Announcement: S ARS-CoV-2 (COVID-19) by N AAT at URL below (note,fact shee ts are provided by method given in report:https:// www.[employer]c linicians/david t-communications/ Alternatively, see downloadable PDF fact sheet at:https://www. [employer]COVID -19-RT-PCR UNLESS OTHERWISE INDIC ATED, ALL TESTING PERFORMED [facility], [facility]. [address] [place] [address] LABORATORY DIRE CTOR: RICA ADAMS M.D. CLIA NUMBER [id number] [place]. [id number]
[2021-12-14] MEDS ORDERED: HYDROCODONE/APAP 7.5/325 MG TAB ONE (22:24)
[2021-12-14] MEDS ORDERED: IBUPROFEN 400 MG TAB ONE (22:24)
--- NOTE | 2021-12-14 22:58 | ER ---
Nurse's Notes [facility] Name: Marco Antonio Tolliver Age: 21 yrs Sex: Male : 2000 Arrival Date: 12/14/2021 Time: 21:10 Bed 14 Private MD: Diagnosis: Laceration without foreign body of left thumb with damage to nail, initial encounter Presentation: 12/14 21:29 Acuity: HAO 4 lp1 21:32 Chief complaint: Patient states: "I cut my thumb at work"; reports using knife at work lp1 and cut tip of left thumb, bleeding continued; Pressure dressing applied during triage to control bleeding. Coronavirus screen: At this time, the client does not indicate any symptoms associated with coronavirus-19. Ebola Screen: No symptoms or risks identified at this time. Complicating Factors: There are no complicating factors for this patient. Initial Sepsis Screen: Does the patient meet any 2 criteria? No. Patient's initial sepsis screen is negative. Does the patient have a suspected source of infection? No. Patient's initial sepsis screen is negative. Risk Assessment: Do you want to hurt yourself or someone else? Patient reports no desire to harm self or others. Onset of symptoms was December 14, 2021 at 19:30. 21:32 Method Of Arrival: Ambulatory lp1 Triage Assessment: 22:37 General: Appears. ke1 23:00 General: Behavior is appropriate for age. Injury Description: surface opening of left ke1 thumb. Historical: - Allergies: 21:33 No Known Allergies; lp1 - Home Meds: 21:33 None [Active]; lp1 - PMHx: 21:33 None; lp1 - PSHx: 21:33 None; lp1 - Immunization history:: Adult Immunizations up to date, Last tetanus immunization: unknown. - Social history:: Smoking status: Reported history of juuling and/or vaping. Screenin:40 Abuse screen: Denies threats or abuse. Nutritional screening: No deficits noted. ke1 Tuberculosis screening: No symptoms or risk factors identified. Fall Risk No fall in past 12 months (0 pts). No secondary diagnosis (0 pts). No IV (0 pts). Ambulatory Aid- None/Bed Rest/Nurse Assist (0 pts). Gait- Normal/Bed Rest/Wheelchair (0 pts) Mental Status- Oriented to own ability (0 pts). Total Lopez Fall Scale indicates No Risk (0-24 pts). Assessment: 21:37 Pain: Pain: Complains of pain in Left thumb Pain currently is 9 out of 10 on a pain ke1 scale. Quality of pain is described as throbbing. 21:39 Musculoskeletal: Range of motion: intact in all extremities. Injury Description: ke1 Laceration is dressing applied to stop bleeding. Vital Signs: 21:32 BP 153 / 82; Pulse 62; Resp 16; Temp 98.8(TE); Pulse Ox 100% on R/A; Weight 86.18 kg lp1 (R); Height 5 ft. 8 in. (172.72 cm); Pain 10/10; 23:02 BP 136 / 78; Pulse 68; Resp 18; Temp 98.6; Pulse Ox 100% on R/A; ke1 21:32 Body Mass Index 28.89 (86.18 kg, 172.72 cm) lp1 ED Course: 21:10 Patient arrived in ED. bp1 21:29 Triage completed. lp1 21:30 Junior Bhandari PA is PHCP. cp 21:30 Vinod John MD is Attending Physician. cp 21:33 Arm band placed on. lp1 21:37 Kelle Hopkins RN is Primary Nurse. ke1 22:55 Fran Noel MD is Referral Physician. cp 22:59 wound care. Patient did not have IV access during this emergency room visit. ke1 23:01 Bed in low position. ke1 Administered Medications: 22:21 Drug: Ibuprofen 800 mg Route: PO; ke1 23:01 Follow up: Response: Marked relief of symptoms ke1 22:22 Drug: Hydrocodone-Acetaminophen (7.5 mg-325 mg) 1 tabs Route: PO; ke1 23:02 Follow up: Response: Marked relief of symptoms ke1 Outcome: 22:58 Discharge ordered by . cp 23:01 Discharged to home ambulatory. ke1 23:01 Condition: good 23:01 Discharge instructions given to patient. 23:14 Patient left the ED. jb4 Signatures: Alka Macdonald RN RN lp1 Junior Bhandari PA PA Roland Pepper RN RN jb4 Anushka Craig bp1 Kelle Hopkins RN RN ke1 Corrections: (The following items were deleted from the chart) 21:39 21:37 Pain: ke1 ke1
--- NOTE | 2021-12-14 22:59 | EDPHYS ---
Physician Documentation [facility] Name: Marco Antonio Tolliver Age: 21 yrs Sex: Male : 2000 Arrival Date: 12/14/2021 Time: 21:10 Bed 14 Private MD: ED Physician Vinod John HPI: 12/14 22:30 This 21 yrs old Male presents to ER via Ambulatory with complaints of cp Laceration, - Finger. 22:30 The patient or guardian reports a laceration, clean. The complaints affect the distal cp tip of left thumb. Context: The problem was sustained at work, resulted from use of knife. 22:30 Onset: The symptoms/episode began/occurred just prior to arrival. Associated signs and cp symptoms: The patient has no apparent associated signs or symptoms. Historical: - Allergies: 21:33 No Known Allergies; lp1 - Home Meds: 21:33 None [Active]; lp1 - PMHx: 21:33 None; lp1 - PSHx: 21:33 None; lp1 - Immunization history:: Adult Immunizations up to date, Last tetanus immunization: unknown. - Social history:: Smoking status: Reported history of juuling and/or vaping. ROS: 22:35 Skin: Positive for laceration(s), of the distal phalanx left thumb. cp 22:35 Constitutional: Negative for body aches, chills, fever. cp 22:35 Cardiovascular: Negative for chest pain. 22:35 Respiratory: Negative for cough, shortness of breath, wheezing. 22:35 Abdomen/GI: Negative for abdominal pain, nausea, vomiting, and diarrhea. 22:35 MS/extremity: Positive for pain, of the left thumb, Negative for decreased range of motion. 22:35 All other systems are negative. Exam: 22:40 Constitutional: The patient appears in no acute distress, alert, awake, non-toxic, well cp developed, well nourished, uncomfortable. 22:40 Musculoskeletal/extremity: Extremities: grossly normal except: noted in the distal cp phalanx left thumb: pain, active bleeding at site of amputation of tip distal phalanx left thumb, no bone exposed, distal part of nail amputated, ROM: full active range of motion, in the left thumb, Perfusion: the extremity is normally perfused throughout, the left thumb Sensation intact. Vital Signs: 21:32 BP 153 / 82; Pulse 62; Resp 16; Temp 98.8(TE); Pulse Ox 100% on R/A; Weight 86.18 kg lp1 (R); Height 5 ft. 8 in. (172.72 cm); Pain 10/10; 23:02 BP 136 / 78; Pulse 68; Resp 18; Temp 98.6; Pulse Ox 100% on R/A; ke1 21:32 Body Mass Index 28.89 (86.18 kg, 172.72 cm) lp1 MDM: 21:43 Patient medically screened. cp 22:30 Differential diagnosis: open fracture, laceration, distal tip amputation. cp 22:57 Data reviewed: vital signs, nurses notes. cp 22:57 Counseling: I had a detailed discussion with the patient and/or guardian regarding: the cp historical points, exam findings, and any diagnostic results supporting the discharge/admit diagnosis, the need for outpatient follow up, a hand specialist, to return to the emergency department if symptoms worsen or persist or if there are any questions or concerns that arise at home. Response to treatment: the patient's symptoms have markedly improved after treatment, Wound dressed with surgi seal and pressure dressing. Patient declined any xrays at this time. Will discharge to home for continued monitoring. 12/14 22:27 Order name: Wound Care; Complete Time: 23:01 cp Administered Medications: 22:21 Drug: Ibuprofen 800 mg Route: PO; ke1 23:01 Follow up: Response: Marked relief of symptoms ke1 22:22 Drug: Hydrocodone-Acetaminophen (7.5 mg-325 mg) 1 tabs Route: PO; ke1 23:02 Follow up: Response: Marked relief of symptoms ke1 Disposition Summary: 12/14/21 22:58 Discharge Ordered Location: Home cp Problem: new cp Symptoms: have improved cp Condition: Stable cp Diagnosis - Laceration without foreign body of left thumb with damage to nail, initial encountercp Followup: cp - With: Fran Noel MD - When: 1 - 2 days - Reason: Wound Recheck Discharge Instructions: - Discharge Summary Sheet cp - Nonsutured Laceration Care cp Forms: - Medication Reconciliation Form cp - Thank You Letter cp - Antibiotic Education cp - Prescription Opioid Use cp Prescriptions: - Cephalexin 500 mg Oral Capsule - take 1 capsule by ORAL route every 8 hours for 10 days; 30 capsule; Refills: 0, cp Product Selection Permitted - Tramadol 50 mg Oral Tablet - take 1 tablet by ORAL route every 8 hours as needed; 12 tablet; Refills: 0, cp Product Selection Permitted Addendum: 12/19/2021 07:21 Co-signature as Attending Physician, Vinod John MD I agree with the assessment and k dr plan of care. Signatures: Vinod John MD MD [facility] Alka Macdonald RN RN lp1 Junior Bhandari PA PA Kelle Sandoval RN RN ke1
[2021-12-14 23:26] VITALS: O2SAT 100
[2021-12-14 23:27] VITALS: BP 136/78; TEMP 98.6
== END 2021-12-14 23:14 | disposition home or self-care (01) ==
LOC: ER 21:09
DX: S61.112A Laceration without foreign body of left thumb with damage to nail, initial encounter (principal); W26.0XXA Contact with knife, initial encounter; Y92.89 Other specified places as the place of occurrence of the external cause; Y99.8 Other external cause status
CPT/HCPCS: 99283

== ENCOUNTER 2022-03-23 13:47 | Emergency (ER) | payer SELFPAY ==
--- OUTSIDE RECORDS SUMMARY | 2022-03-23 13:49 | XMS REPORT | Continuity of Care Document ---
:2000 Author Organization [facility] Address [address] [place] [address] Care Team Providers Name Role Phone PCP, PATIENT DOES NOT HAVE A Primary Care Physician Unavaila SYDNEE Alberto Attending Clinician Unavailable Sydnee Barrios Attending Clinician Problems Condition Condition Condition Status Onset Resolution Last Treating Co mments Source Name Details Category Date Date Treatment Clinician Date No known No known Disease Unive rs active active ity of problems problems [facility] Allergies, Adverse Reactions, Alerts Allergy Allergy Status Severity Reaction(s) Onset Inactive Treating Comm ents Source Name Type Date Date Clinician NO KNOWN Drug Active Univers ALLERGIE Class ity of S [facility] Social History Social Habit Start Date Stop Date Quantity Comments Source Exposure to 2021-11-20 2021-11-30 Not sure [facility] SARS-CoV-2 (event) 00:00:00 13:17:00 Medica l Branch Sex Assigned At [birth year] [facility] 00:00:00 00:00:00 [facility] Smoking Status Start Date Stop Date Source Unknown if ever smoked [facility] Medications Ordered Filled Start Stop Current Ordering Indication Dosage Frequency Signature Comments Components Source Medication Medication Date Date Medication? Clinician (SIG) Name Name No known No Univers medications 11-30 ity of 15:12: [address] Vital Signs Vital Name Observation Time Observation Value Comments Source Systolic blood 2021-11-30 18:18:00 138 mm[Hg] Univer sity of pressure [facility] Diastolic blood 2021-11-30 18:18:00 89 mm[Hg] Unive rsity of pressure [facility] Heart rate 2021-11-30 18:18:00 53 /min [facility] Body temperature 2021-11-30 18:18:00 36.78 [facility] Respiratory rate 2021-11-30 18:18:00 14 /min [facility] Body height 2021-11-30 18:18:00 170.2 cm [facility] Body weight 2021-11-30 18:18:00 86.183 kg [facility] BMI 2021-11-30 18:18:00 29.76 kg/m2 [facility] Oxygen saturation in 2021-11-30 18:18:00 99 /min [facility] Arterial blood by [facility] Pulse oximetry Branch Procedures Procedure Date / Time Performed Performing Clinician [facility] NOTICE OF PRIVACY 2021-11-30 18:10:21 Doctor Unassigned, No [facility] PRACTICES Name Medical [place] CONSENT/REFUSAL FOR 2021-11-30 18:09:03 Doctor Unassigned, No [facility] DIAGNOSIS AND Name Medical Branch TREATMENT Encounters Start End Encounter Admission Attending Care Care Encounter Source Date/Time Date/Time Type Type Clinicians Facility Department ID 2021-11-30 2021-11-30 Emergency X SELF, [facility] ERT [id number] Univers 13:18:00 15:19:00 SYDNEE carlosnavya [facility] 2021-11-30 2021-11-30 Emergency Self, [facility] [id number] Univers 13:18:00 15:19:00 Sydnee BESS [id number] i ty [facility] [id number] [facility] [id number] [facility] 084 Branch Results Test Description Test Time Test Comments Results Result Comments Source SARS-CoV-2 (COVID-19), RT-PCR/TMA 2021-09-07 06:58:49 Test Item Value Reference Range Interpretation Comme nts SARS-CoV-2 INTERPRETATION NEGATIVE SEE NOTE S ARS-CoV-2 RNA NOT (test code = 60612) DETECTED Negative results do not preclude SARS-C [...] is h igh. SOURCE (test code = 52343) NOT SPECIFIED Note: Methodology is Zaid Tenisha Real-Time RT-PCR. The expected result or reference range is NEGATI VE (Not Detected). For more information regarding COVID -19 testing to include clinica linformation, methodology det ail, intended use, FDA author ization andrecommended fact sheets for patients or a lthcare providers, see [facility] Announcement: S ARS-CoV-2 (COVID-19) by N AAT at URL below (note,fact shee ts are provided by method given in report:https:// [email or web address]/c linicians/david t-communications/ Alternatively, see downloadable PDF fact sheet at:https://www. [employer]/COVID -19-RT-PCR UNLE SS OTHERWISE INDICATED, ALL TESTING PERFORMED ATCLINICAL PATH [facility], [place]. [address] [place] [address], [place] [id number] PING PONG TABLE ASSEMBLER: Jennifer WINCHESTER [id number] CAP ACCREDITATION N O. [id number]
[2022-03-23] MEDS ORDERED: FENTANYL CITR 100 MCG/2 ML ONE (14:59)
[2022-03-23] MEDS ORDERED: HYDROCODONE/APAP 7.5/325 MG TAB ONE (15:28)
--- NOTE | 2022-03-23 15:29 | RAD REPORT ---
EXAM DESCRIPTION: Shoulder Right 2 View - 03/23/2022 3:23 pm CLINICAL HISTORY: fall, right shoulder pain COMPARISON: No comparisons TECHNIQUE: Internal and external rotation views of the right shoulder were obtained. FINDINGS: Humeral head is dislocated medial and inferior to the bony glenoid, classic for anterior d islocation if no acute fracture change seen. AC joint is normal in appearance. Delete select IMPRESSION: Anterior dislocation of the right humerus
--- NOTE | 2022-03-23 15:33 | RAD REPORT ---
EXAM DESCRIPTION: Shoulder Right 2 View - 03/23/2022 3:24 pm CLINICAL HISTORY: post reduction COMPARISON: Shoulder Right 2 View dated 03/23/2022 TECHNIQUE: Single view the right shoulder obtained labeled post reduction FINDINGS: Humeral head has been reduced back to anatomic position. AC joint is normal in appearance . No other significant finding. IMPRESSION: Reduction of a previously detailed anterior dislocation.
--- NOTE | 2022-03-23 15:44 | EDPHYS ---
Physician Documentation [facility] Name: Marco Antonio Tolliver Age: 21 yrs Sex: Male : 2000 Arrival Date: 03/23/2022 Time: 13:47 Bed 9 Private MD: ED Physician Marco Antonio Baez HPI: 03/23 14:33 This 21 yrs old Male presents to ER via Wheelchair with complaints of Arm cp Injury. 14:33 The patient or guardian complains of decreased range of motion, deformity, injury, cp pain, that is acute. The complaints affect the right shoulder. 14:33 Context: The problem was sustained at home, resulted from a fall. Onset: The cp symptoms/episode began/occurred just prior to arrival. Treatment prior to arrival includes: no previous treatment. Associated signs and symptoms: The patient has no apparent associated signs or symptoms. Historical: - Allergies: 14:23 No Known Allergies; vg1 - Home Meds: 14:23 None [Active]; vg1 - PMHx: 14:23 None; vg1 - PSHx: 14:23 None; vg1 - Immunization history:: Client reports receiving the 2nd dose of the Covid vaccine. - Social history:: Smoking status: Reported history of juuling and/or vaping. ROS: 14:35 MS/extremity: Positive for injury or acute deformity, decreased range of motion, pain, cp tenderness, of the right shoulder, Negative for paresthesias. 14:35 Constitutional: Negative for body aches, fever, poor PO intake. cp 14:35 Cardiovascular: Negative for chest pain, edema, palpitations. 14:35 Respiratory: Negative for cough, shortness of breath, wheezing. 14:35 Eyes: Negative for injury, pain, redness, and discharge. cp 14:35 Neck: Negative for pain with movement, pain at rest, stiffness. 14:35 Abdomen/GI: Negative for abdominal pain, nausea, vomiting, and diarrhea. 14:35 Back: Negative for injury or acute deformity, pain at rest, pain with movement. 14:35 Neuro: Negative for altered mental status, headache, numbness, weakness. 14:35 All other systems are negative. Exam: 14:40 Constitutional: The patient appears in no acute distress, alert, awake, cp non-diaphoretic, non-toxic, well developed, well nourished, uncomfortable. 14:40 Head/Face: Normocephalic, atraumatic. cp 14:40 Neck: C-spine: vertebral tenderness, is not appreciated, crepitus, is not appreciated, ROM/movement: is normal, is supple, without pain, no range of motions limitations. 14:40 Chest/axilla: Inspection: normal, Palpation: is normal, no crepitus, no tenderness. 14:40 Cardiovascular: Rate: normal, Rhythm: regular. 14:40 Respiratory: the patient does not display signs of respiratory distress, Respirations: normal, no use of accessory muscles, no retractions, labored breathing, is not present, Breath sounds: are clear throughout, no decreased breath sounds, no stridor, no wheezing. 14:40 Abdomen/GI: Inspection: abdomen appears normal, Palpation: abdomen is soft and non-tender, in all quadrants. 14:40 Back: pain, is absent, ROM is normal. 14:40 Musculoskeletal/extremity: Extremities: grossly normal except: noted in the right shoulder: decreased ROM, deformity, pain, ROM: limited passive range of motion, in the right shoulder, Pulses: noted to be 2+ in the right radial artery, the right shoulder Severe pain noted. 14:40 Neuro: Orientation: to person, place \T\ time. Mentation: is normal. Vital Signs: 14:20 Pulse 70; Resp 16; Temp 98.5(O); Pulse Ox 99% on R/A; Weight 81.65 kg; Height 5 ft. 6 vg1 in. (167.64 cm); Pain 10/10; 14:30 BP 124 / 74; ss 14:20 Body Mass Index 29.05 (81.65 kg, 167.64 cm) vg1 Procedures: 15:45 Reduction: of the right shoulder, using traction, Immobilized with shoulder cp immobilizer. Patient tolerated well. Post reduction film - reveals normal alignment. MDM: 14:26 Patient medically screened. cp 15:44 Data reviewed: vital signs, nurses notes, radiologic studies, plain films. cp 15:44 Differential diagnosis: dislocation, closed fracture, contusion. Test interpretation: cp by ED physician or midlevel provider: plain radiologic studies. Counseling: I had a detailed discussion with the patient and/or guardian regarding: the historical points, exam findings, and any diagnostic results supporting the discharge/admit diagnosis, radiology results, the need for outpatient follow up, a orthopedic surgeon, to return to the emergency department if symptoms worsen or persist or if there are any questions or concerns that arise at home. Response to treatment: the patient's symptoms have resolved after treatment, and as a result, I will discharge patient. 03/23 14:28 Order name: XRAY Shoulder RIGHT 2 view; Complete Time: 15:41 cp 03/23 15:41 Interpretation: Reviewed. cp 03/23 15:10 Order name: XRAY Shoulder RIGHT 2 view; Complete Time: 15:41 cp 03/23 15:41 Interpretation: Reviewed. cp 03/23 14:45 Order name: IV; Complete Time: 14:55 cp 03/23 15:11 Order name: Shoulder Immobilizer; Complete Time: 15:41 cp 03/23 15:11 Order name: Vital Signs: to include blood pressure; Complete Time: 15:41 cp Administered Medications: 14:56 Drug: fentaNYL (PF) 25 mcg Route: IVP; Site: left antecubital; 15:41 Follow up: Response: No adverse reaction ss 15:21 Drug: Hydrocodone-Acetaminophen (7.5 mg-325 mg) 1 tabs Route: PO; ss 15:55 Follow up: Response: Medication administered at discharge. Disposition: 16:45 Attestation: The patient's history, exam findings, diagnostics, and a summary of any rust interventions or procedures was reviewed in detail with Junior SUMMERS. Disposition Summary: 03/23/22 15:44 Discharge Ordered Location: Home cp Problem: new cp Symptoms: are resolved cp Condition: Stable cp Diagnosis - Other dislocation of right shoulder joint, initial encounter - anterior cp Followup: cp - With: Dagoberto Rendon MD - When: 2 - 3 days - Reason: Recheck today's complaints Discharge Instructions: - Discharge Summary Sheet cp - Shoulder Dislocation cp - How to Use a Shoulder Immobilizer cp Forms: - Medication Reconciliation Form cp - Thank You Letter cp - Antibiotic Education cp - Prescription Opioid Use cp Prescriptions: - Diclofenac Sodium 75 mg Oral tablet,delayed release (DR/EC) - take 1 tablet by ORAL route 2 times per day; 20 tablet; Refills: 0, Product cp Selection Permitted Signatures: Dispatcher [facility] Bertha Hayes RN RN ss Page, Corey, PA PA cp Garcia Mercedes, RN RN vg1 Marco Antonio Baez MD MD [id number] Corrections: (The following items were deleted from the chart) 03/24 13:21 03/23 15:30 Reduction: of the right shoulder, using traction, Immobilized with shoulder cp immobilizer. Patient tolerated well. Post reduction film - reveals normal alignment. cp
--- NOTE | 2022-03-23 15:44 | ER ---
Nurse's Notes [facility] Name: Marco Antonio Tolliver Age: 21 yrs Sex: Male : 2000 Arrival Date: 03/23/2022 Time: 13:47 Bed 9 Private MD: Diagnosis: Other dislocation of right shoulder joint, initial encounter-anterior Presentation: 03/23 14:20 Chief complaint: Patient states: "I was about to take a shower and I slipped in the vg1 shower and landed on my Right Shoulder" Pt denies hitting head, incident occurred about 20 minutes ago. Coronavirus screen: Vaccine status: Patient reports receiving the 2nd dose of the covid vaccine. Client denies travel out of the [place] in the last 14 days. Ebola Screen: Patient denies exposure to infectious person. Patient denies travel to an Ebola-affected area in the 21 days before illness onset. Initial Sepsis Screen: Does the patient meet any 2 criteria? No. Patient's initial sepsis screen is negative. Does the patient have a suspected source of infection?. Risk Assessment: Do you want to hurt yourself or someone else? Patient reports no desire to harm self or others. Onset of symptoms was March 23, 2022. 14:20 Method Of Arrival: Wheelchair vg1 14:20 Acuity: HAO 4 vg1 Triage Assessment: 14:23 General: Appears in no apparent distress. uncomfortable, Behavior is calm, cooperative. vg1 Pain: Complains of pain in Right shoulder Pain currently is 10 out of 10 on a pain scale. Quality of pain is described as throbbing. Neuro: Level of Consciousness is awake, alert, obeys commands, Oriented to person, place, time, situation. Musculoskeletal: Circulation, motion, and sensation intact. Historical: - Allergies: 14:23 No Known Allergies; vg1 - Home Meds: 14:23 None [Active]; vg1 - PMHx: 14:23 None; vg1 - PSHx: 14:23 None; vg1 - Immunization history:: Client reports receiving the 2nd dose of the Covid vaccine. - Social history:: Smoking status: Reported history of juuling and/or vaping. Screenin:55 Abuse screen: Denies threats or abuse. Denies injuries from another. Nutritional jh5 screening: No deficits noted. Tuberculosis screening: No symptoms or risk factors identified. Fall Risk None identified. Assessment: 14:56 General: Behavior is anxious, tearful. Denies fever, feeling ill. Pain: Complains of ss pain in R arm Pain currently is 10 out of 10 on a pain scale. Quality of pain is described as. Neuro: Level of Consciousness is awake, alert, obeys commands, Oriented to person, place, time, situation, Speech is normal. Cardiovascular: Pulses are palpable in right radial artery and left radial artery. Respiratory: Airway is patent Respiratory effort is even, unlabored, Respiratory pattern is regular, symmetrical. EENT: Oral mucosa is moist. Derm: Skin is intact, is healthy with good turgor, Skin is dry, Skin is pink, warm \\T\\ dry. normal. 15:43 Reassessment: Patient appears in no apparent distress at this time. Patient and/or ss family updated on plan of care and expected duration. Pain level reassessed. PT reports pain relief after shoulder reduction, medication and immobilizer placement Patient states feeling better. Patient states symptoms have improved. Vital Signs: 14:20 Pulse 70; Resp 16; Temp 98.5(O); Pulse Ox 99% on R/A; Weight 81.65 kg; Height 5 ft. 6 vg1 in. (167.64 cm); Pain 10/10; 14:30 BP 124 / 74; ss 14:20 Body Mass Index 29.05 (81.65 kg, 167.64 cm) vg1 ED Course: 13:47 Patient arrived in ED. rg4 13:54 Junior Bhandari PA is PHCP. cp 13:54 Marco Antonio Baez MD is Attending Physician. cp 14:23 Triage completed. vg1 14:23 Arm band placed on. vg1 14:55 Bertha Morris, KLEBER is Primary Nurse. ss 14:55 Patient has correct armband on for positive identification. Call light in reach. Adult jh5 w/ patient. 14:55 No provider procedures requiring assistance completed. Inserted saline lock: 18 gauge jh5 in left antecubital area, using aseptic technique. 15:25 XRAY Shoulder RIGHT 2 view In Process Unspecified. EDMS 15:26 XRAY Shoulder RIGHT 2 view In Process Unspecified. EDMS 15:42 Dagoberto Rendon MD is Referral Physician. cp 15:52 PT dc'd own IV. Pt stated, "Oh, sorry. It was just bothering me." no active bleeding ss noted at this time. catheter tip intact.". 15:55 Shoulder immobilizer applied on right shoulder. ss Administered Medications: 14:56 Drug: fentaNYL (PF) 25 mcg Route: IVP; Site: left antecubital; ss 15:41 Follow up: Response: No adverse reaction 15:21 Drug: Hydrocodone-Acetaminophen (7.5 mg-325 mg) 1 tabs Route: PO; ss 15:55 Follow up: Response: Medication administered at discharge. ss Medication: 14:56 VIS not applicable for this client. jh5 Outcome: 15:44 Discharge ordered by MD. andrew 15:52 Discharged to home ambulatory, with family. 15:52 Condition: good 15:52 Discharge instructions given to patient, family, Instructed on discharge instructions, follow up and referral plans. Demonstrated understanding of instructions, follow-up care, medications, Prescriptions given X 1. 15:54 Patient left the ED. Signatures: Dispatcher [employer] EDMS Bertha Morris RN RN ss Junior Bhandari, Carmella Chapman cp rg4 Mercedes Botello, RN RN vg1 Kristie Mayers, RN RN jh5
[2022-03-23 16:07] VITALS: TEMP 98.5; O2SAT 99
[2022-03-23 16:08] VITALS: BP 124/74
== END 2022-03-23 15:54 | disposition home or self-care (01) ==
LOC: ER 13:47
PROC: 0RSJXZZ Reposition Right Shoulder Joint, External Approach (ICD-10-PCS; principal; 2022-03-23)
DX: S43.084A Other dislocation of right shoulder joint, initial encounter (principal)
CPT/HCPCS: 96374; 99284; J3010